=== PATIENT | male | born 1940 | race Two or more races ===

== ENCOUNTER 2016-08-28 00:28 | Inpatient (IN) | payer OTHER ==
[~2016-08-28] VITALS: Ht 175.3 cm; Wt 69.9 kg
[2016-08-28] MEDS ORDERED: MAG HYDROX/AL HYDROX/SIMETH 30 ML UDC PO PRN (01:00)
[2016-08-28] MEDS ORDERED: MAGNESIUM HYDROXIDE 30 ML UDC PO PRN (01:00)
[2016-08-28] MEDS ORDERED: ACETAMINOPHEN 325 MG TABLET PO PRN (01:00)
[2016-08-28] MEDS ORDERED: MEMA21CA PO (01:16)
[2016-08-28] MEDS ORDERED: IPRA21SP NS (01:16)
[2016-08-28] MEDS ORDERED: TRIA63AE TP (01:16)
[2016-08-28] MEDS ORDERED: METO50TA7 PO (01:16)
[2016-08-28] MEDS ORDERED: LOSA50TA21 PO (01:16)
[2016-08-28] MEDS ORDERED: LOPE2CAP40 PO (01:16)
[2016-08-28] MEDS ORDERED: SIMV40TA5 PO (01:16)
[2016-08-28] MEDS ORDERED: DONE10TA44 PO (01:16)
[2016-08-28] MEDS ORDERED: FLUO40CA49 PO (01:16)
[2016-08-28] MEDS ORDERED: LACT-215 PO (01:16)
[2016-08-28] MEDS ORDERED: ASPI81TA2 PO (01:16)
[2016-08-28] MEDS ORDERED: LATA2.5D7 RIGHTEYE (01:16)
[2016-08-28] MEDS ORDERED: FLUT16SP BNOSTRILS (01:16)
[2016-08-28 08:20] VITALS: BP 144/70
[2016-08-28 08:27] LABS: CALCIUM, SERUM 8.3 mg/dL (8.5-10.1); CREATININE 0.8 mg/dL (0.6-1.3); POTASSIUM 3.4 mmol/L (3.5-5.1)
[2016-08-28 08:28] LABS: BILIRUBIN,TOTAL 0.6 mg/dL (0.2-1.0); TOTAL PROTEIN, SERUM 5.5 g/dL (6.4-8.2)
[2016-08-28] MEDS: Fluoxetine 10 mg capsule PO SCH (12:22)
[2016-08-28] MEDS: MEMANTINE HCL 5 MG TABLET PO SCH ×2 (12:22→16:40)
[2016-08-28 16:11] VITALS: BP 132/62
[2016-08-28] MEDS ORDERED: LOPERAMIDE HCL (2 MG CAP) 2 MG CAPSULE PO PRN (18:00)
[2016-08-28] MEDS ORDERED: LATANOPROST EYE DROP 0.005% 2.5 ML BOTTLE RIGHTEYE SCH (18:00)
[2016-08-28] MEDS ORDERED: TRIAMCINOLONE 0.025% ACETONIDE 60 ML BOTTLE TP SCH (19:00)
[2016-08-28] MEDS: CIPROFLOXACIN HCL 250 MG TABLET PO SCH (20:15)
[2016-08-28 20:23] VITALS: BP 139/91
[2016-08-28] MEDS: TRIAMCINOLONE ACETONIDE 0.1% CR 15 GM TUBE TP SCH (20:37)
[2016-08-28] MEDS ORDERED: CEPHALEXIN MONOHYDRATE 500 MG CAPSULE PO SCH (21:00)
[2016-08-28] MEDS ORDERED: DONEPEZIL 5 MG TABLET PO SCH (22:00)
[2016-08-28] MEDS ORDERED: IPRATROPIUM BROMIDE 0.06% 15 ML NASPR NS SCH (22:00)
[2016-08-29] MEDS ORDERED: BOOST PLUS FOOD-CHOCLATE 237 ML BOX PO PRN (08:00)
[2016-08-29 08:12] VITALS: BP 130/86
[2016-08-29] MEDS: Fluoxetine 10 mg capsule PO SCH (08:15)
[2016-08-29] MEDS: MEMANTINE HCL 5 MG TABLET PO SCH (08:18)
[2016-08-29 08:19] VITALS: BP 130/86
[2016-08-29] MEDS: CIPROFLOXACIN HCL 250 MG TABLET PO SCH (08:19)
[2016-08-29] MEDS: TRIAMCINOLONE ACETONIDE 0.1% CR 15 GM TUBE TP SCH (08:20)
[2016-08-29] MEDS ORDERED: ASPIRIN 81 MG TAB.CHEW PO SCH (09:00)
[2016-08-29] MEDS ORDERED: FLUTICASONE PROPIONATE 16 GM BOTTLE NS SCH (09:00)
[2016-08-29] MEDS ORDERED: LOSARTAN POTASSIUM 50 MG TABLET PO SCH (09:00)
[2016-08-29] MEDS ORDERED: SIMVASTATIN 40 MG TABLET PO SCH (09:00)
[2016-08-29] MEDS ORDERED: METOPROLOL SUCCINATE 50 MG TAB.SR.24H PO SCH (09:00)
[2016-08-29] MEDS ORDERED: POTASSIUM CHLORIDE 20 MEQ TAB.PRT.SR PO ONE (11:30)
== END 2016-08-29 16:15 | DRG 885 ==
LOC: GPS 00:28
PROVIDERS: ADMIT Psychiatry & Neurology Psychosomatic Medicine; ATTEND Nurse Practitioner Acute Care
DX: F32.1 Major depressive disorder, single episode, moderate (principal); F02.80 Dementia in other diseases classified elsewhere, unspecified severity, without behavioral disturbance, psychotic disturbance, mood disturbance, and anxiety; N39.0 Urinary tract infection, site not specified; F29 Unspecified psychosis not due to a substance or known physiological condition; G30.9 Alzheimer's disease, unspecified; E78.5 Hyperlipidemia, unspecified; I10 Essential (primary) hypertension; L27.0 Generalized skin eruption due to drugs and medicaments taken internally
CPT/HCPCS: 36415; 80053-TC; 80061-TC; 87081-TC